=== PATIENT | female | born 1950 | race Caucasian/White ===

== ENCOUNTER → 2017-08-03 | Outpatient (CLI) | payer OTHER ==
[~2017-08-03] MED LIST: ACET-1966 PO; CA C1TAB6 PO; CHOL400C PO; HYDR-2970 PO; IBUP200C71 PO; LEVO25TA56 PO; LOR5/325 PO; LORA1TAB69 PO; MAGN250T26 PO; MULT-885 PO; POT20 PO; SIMV-42 PO; [UNRECOGNIZED DRUG - CODE] PO
--- NOTE | 2017-08-04 09:07 | RADIOLOGY IMAGING REPORT ---
[place]AC[place] [facility] [place] NAME: CORNEL VILLA : [id number] MR: [id number] V: [id number] EXAM DATE: ORDERING PHYSICIAN: MYA VELASQUEZ TECHNOLOGIST: Skylar Worley PROCEDURE:BILATERAL DIGITAL SCREENING MAMMOGRAM WITH CAD ASSISTED INTERPRETATION & 3D TOMOSYNTHESIS COMPARISON:Prior mammograms 05/17/16, 03/10/14, 03/04/13, 02/29/12, 01/11/11. INDICATIONS:SCREENING FINDINGS: A small amount of fibroglandular tissue is seen throughout the breasts. The parenchymal pattern has remained stable allowing for difference in mammographic technique & patient positioning. There is no evidence of malignant appearing mass, malignant appearing calcifications or other secondary sign of malignancy in either breast. DIAGNOSTIC CATEGORY 1--NEGATIVE. RECOMMENDATIONS: ROUTINE MAMMOGRAM AND CLINICAL EVALUATION. IMPRESSION: BIRADS 1: Negative. No significant abnormality is seen. Dictated by: Sharon Nunez M.D. on 08/03/2017 at 15:32 Transcribed by: [email or web address] on 08/03/2017 at 16:02 Approved by: Sharon Nunez M.D. on 08/04/2017 at 9:07 [facility]
== END ==
LOC: MAMO 13:12
PROVIDERS: ATTEND Nurse Practitioner Family
DX: Z12.31 Encounter for screening mammogram for malignant neoplasm of breast (principal)
CPT/HCPCS: 77063; 77067

== ENCOUNTER → 2018-07-05 | Outpatient (CLI) | payer BC ==
[~2018-07-05] MED LIST changes: +IBUP-136 PO; -IBUP200C71 PO; +IOPAMIDOL 76% 150 ML INFUS BTL 150 ML ONE
--- NOTE | 2018-07-05 16:33 | RADIOLOGY IMAGING REPORT ---
FACILITY: [facility] PATIENT NAME: Norma Montano : 1950 MR: [id number] V: [id number] EXAM DATE: ORDERING PHYSICIAN: MYA VELASQUEZ TECHNOLOGIST: Location: [facility] [place] Patient: Norma Montnao : 1950 Visit/Account:[id number] Date of Sevice: 07/05/2018 CT CHEST (CONTRAST) History: Not feeling well x1 week, cough, shortness of breath, pulmonary nodule in right lung seen o n an outside chest radiograph. Remote history of breast cancer TECHNIQUE: Contiguous axial images were performed through the chest to the level of the adrenal gla nds following the administration of IV contrast. Coronal and sagittal reformatting was also perform ed.Dose Lowering Technique One of the following dose optimization techniques was utilized in the performance of this exam: Autom ated exposure control; adjustment of the mA and/or kV according to the patient's size; or use of an i terative reconstruction technique. Specific details can be referenced in the facility's radiology C T exam operational policy. Contrast: 75 mL Isovue-370 COMPARISON STUDIES: PET/CT August 21, 2013 CTA June 01, 2015 Lungs / Pleura: there is a mild tree-in-bud pattern along the inferior right upper lobe which may r epresent an infectious/inflammatory process. There is a 2 mm noncalcified nodule along the superior posterior aspect of the right middle lobe be st appreciated on image 144 of series 4 that appears stable There is a 2 mm noncalcified subpleural nodule posterior lateral aspect of the left lower lobe best s een on image 203 that appears stable. There is no evidence of pleural effusions. 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 There are surgical clips in the right axilla Upper abdomen: 1.5 cm upper pole left renal cyst IMPRESSION: There two tiny pulmonary nodules as described above that have remained stable since the prior study d ating back to May 24, 2015 and are of no clinical significance There is a mild tree-in-bud pattern along the inferior right upper lobe which may represent a subtle infectious/inflammatory process. Chronic dilatation of the central pulmonary arterial tree which can be seen with pulmonary arterial h ypertension Report Dictated By: Sharon Nunez MD at 07/05/2018 3:56 PM Report E-Signed By: Sharon Nunez MD at 07/05/2018 4:29 PM WSN:[email or web address]
== END ==
LOC: CT 14:27
PROVIDERS: ATTEND Nurse Practitioner Family
DX: R91.8 Other nonspecific abnormal finding of lung field (principal); E87.8 Other disorders of electrolyte and fluid balance, not elsewhere classified
CPT/HCPCS: 36415; 71260; Q9967; 82040; 82247; 82310; 82374; 82435; 82565; 82947; 84075; 84132; 84155; 84295; 84450; 84460; 84520

== ENCOUNTER → 2018-07-20 | Outpatient (CLI) | payer BC ==
[~2018-07-20] MED LIST changes: -IOPAMIDOL 76% 150 ML INFUS BTL 150 ML ONE
== END ==
LOC: RESP 01:52
PROVIDERS: ATTEND Nurse Practitioner Family
DX: J98.4 Other disorders of lung (principal)
CPT/HCPCS: 94060; 94726; 94729